=== PATIENT | female | born 1980 | race Caucasian/White ===

== ENCOUNTER 2018-12-27 07:10 | Day surgery (SDC) | payer OTHER ==
[~2018-12-27] VITALS: Ht 162.6 cm; Wt 79.0 kg
[~2018-12-27 07:10] MED LIST: BIRTH CONTROL PO; DOCU-131 PO; FERR325T18 PO; HYDR-3240 PO; IBUP-1222 PO; IRON PO; NORG1TAB7 PO; OXYC-302 PO
[2018-12-27 07:50] VITALS: BP 131/69
[2018-12-27] MEDS ORDERED: CEFAZOLIN PMX 1GM/50ML 50 ML IV ONE (08:00)
[2018-12-27] MEDS ORDERED: PLEASE ENTER HEIGHT AND WEIGHT MC SCH (08:00)
[2018-12-27 08:07] LABS: HCG UR SG 1.021 (1.003-1.030)
[2018-12-27 08:24] LABS: MEAN CORPUSCULAR HEMOGLOBIN 21.3 pg (27.0-34.8); MEAN CORPUSCULAR HGB CONC 30.5 g/dL (32.4-35.8); MEAN CORPUSCULAR VOLUME 69.9 fL (80-100); RED BLOOD COUNT 4.63 x10^6/uL (3.82-5.3); RED CELL DISTRIBUTION WIDTH 20.8 % (9.6-15.2)
[2018-12-27] MEDS ORDERED: SILVER NITRATE STICK TP ONE (08:31)
[2018-12-27] MEDS ORDERED: EPINEPHRINE 1 MG/ML, 1ML ONE (08:31)
[2018-12-27] MEDS ORDERED: BUPIVACAINE/PF 0.25% ONE (08:31)
[2018-12-27 08:34] VITALS: BP 131/69
[2018-12-27 08:40] LABS: BASOPHILS # (AUTO) 0.04 x10^3/uL (0-0.1); BASOPHILS % (AUTO) 1 % (0-1); EOSINOPHILS # (AUTO) 0.15 x10^3/uL (0-0.4); EOSINOPHILS % (AUTO) 2 % (1-7); LYMPHOCYTES # (AUTO) 2.35 x10^3/uL (1-3.4); LYMPHOCYTES % (AUTO) 32 % (22-44); MD MORPH REVIEW ONLY; MEAN PLATELET VOLUME 12.6 fL (7.4-10.4); MONOCYTES # (AUTO) 0.58 x10^3/uL (0.2-0.8); MONOCYTES % (AUTO) 8 % (2-9); NEUTROPHILS # (AUTO) 4.21 x10^3/uL (1.8-6.8); NEUTROPHILS % (AUTO) 58 % (42-75); PLATELET COUNT 295 x10^3/uL (130-400)
[2018-12-27 08:54] LABS: ANISOCYTOSIS 2+; MICROCYTOSIS 2+
[2018-12-27 08:55] LABS: <PLATELET ESTIMATE> ADEQUATE; GIANT PLATELETS 1+; LARGE PLATELETS 1+; OVALOCYTES 1+
[2018-12-27] MEDS ORDERED: MIDAZOLAM 1 MG/ML, 2ML ONE (08:55)
[2018-12-27] MEDS ORDERED: FENTANYL PF 250 MCG/5ML ONE (08:55)
[2018-12-27 08:56] LABS: POLYCHROMASIA 1+
[2018-12-27] MEDS ORDERED: DEXAMETHASONE 4 MG/ML, 1ML ONE ×2 (10:04→10:19)
[2018-12-27] MEDS ORDERED: FLU VAC QS 19-20(4YR UP)CEL/PF 0.5 ML IM-VACC ONE (10:30)
[2018-12-27] MEDS ORDERED: MIDAZOLAM 1 MG/ML, 2ML IV PRN (10:30)
[2018-12-27] MEDS ORDERED: HYDROmorphone 2 MG/ML, 1ML IVPush PRN (10:30)
[2018-12-27] MEDS ORDERED: ONDANSETRON 2MG/ML, 2ML IV PRN (10:30)
[2018-12-27] MEDS ORDERED: PROMETHAZINE 25 MG/ML, 1ML IV PRN (10:30)
[2018-12-27] MEDS ORDERED: ACETAMINOPHEN 325 MG TABLET PO PRN (10:30)
[2018-12-27] MEDS ORDERED: MEPERIDINE/PF 25MG/ML,1ML IVPush PRN (10:30)
[2018-12-27] MEDS ORDERED: OXYcodone 5 MG/5 ML ORAL.SOL UDC PO PRN (10:30)
[2018-12-27] MEDS ORDERED: BUPIVACAINE/PF-EPI 0.25% 1:200K INFIL ONE (10:34)
[2018-12-27] MEDS ORDERED: ONDANSETRON 2MG/ML, 2ML ONE (10:37)
[2018-12-27] MEDS ORDERED: PROPOFOL 10 MG/ML, 20ML ONE (10:40)
[2018-12-27] MEDS ORDERED: ROCURONIUM 10MG/ML,5ML ONE (10:40)
[2018-12-27] MEDS ORDERED: KETOROLAC 30 MG/1 ML ONE (10:40)
[2018-12-27] MEDS ORDERED: NEOSTIGMINE 1 MG/ML, 10ML ONE (11:08)
[2018-12-27] MEDS ORDERED: GLYCOPYRROLATE 0.2MG/1ML, 5ML ONE (11:08)
[2018-12-27] MEDS ORDERED: FENTANYL PF 100 MCG/2ML ONE (11:38)
[2018-12-27] MEDS ORDERED: OXYcodone 5 MG/5 ML ORAL.SOL UDC ONE (11:39)
[2018-12-27] MEDS: FENTANYL PF 100 MCG/2ML IV PRN ×2 (11:40→12:00)
[2018-12-27] MEDS ORDERED: MEPERIDINE/PF 25MG/ML,1ML ONE (12:04)
[2018-12-27] MEDS ORDERED: OXYC-302 PO (14:51)
[2018-12-27] MEDS ORDERED: IBUP-1222 PO (14:53)
[2018-12-27] MEDS ORDERED: DOCU-131 PO (14:54)
[2018-12-27] MEDS ORDERED: OXYcodone/APAP 5/325MG TABLET PO PRN (15:00)
[2018-12-27] MEDS ORDERED: KETOROLAC 30 MG/1 ML IV PRN (15:00)
[2018-12-27] MEDS ORDERED: morphine SULFATE 10 MG/ML, 1ML IV PRN (15:00)
== END 2018-12-27 15:27 | disposition home or self-care (01) ==
LOC: OR 07:10 → 4NE 07:13 → DCLOUNGE 15:07 → OR 15:27
PROVIDERS: ATTEND Obstetrics & Gynecology
DX: Z30.2 Encounter for sterilization (principal); Z23 Encounter for immunization; N83.8 Other noninflammatory disorders of ovary, fallopian tube and broad ligament; N80.2 Endometriosis of fallopian tube; N83.292 Other ovarian cyst, left side; N73.6 Female pelvic peritoneal adhesions (postinfective); Z90.49 Acquired absence of other specified parts of digestive tract
CPT/HCPCS: 36415; 58661; 81025; 85025; 86850; 86900; 88302; 88305; 90471; 90674; J0171; J1100; J1885; J2175; J2250; J2405; J2704; J2710; J3010; J3490